=== PATIENT | male | born 1955 | race Caucasian/White ===

== ENCOUNTER 2024-04-04 14:56 | Observation (INO) | payer OTHER, BC ==
[2024-04-04] MEDS ORDERED: DIPHTH,PERTUSS(ACELL),TET 0.5 ML DISP.SYRIN IM ONE (15:36)
[2024-04-04] MEDS: DIPHTH,PERTUSS(ACELL),TET 0.5 ML DISP.SYRIN IM ONE (15:51)
[2024-04-04 15:58] LABS: BASO % 0.8 % (0-2.0); EOS % 1.1 % (0-4.5); HEMATOCRIT 44.5 % (35.4-49); HEMOGLOBIN 14.7 GM/dL (11.7-16.9); LYMPH % 28.8 % (8-40); MCH 29.9 pg (25.7-33.7); MEAN CELL VOLUME 90.6 fl (80-96); MEAN PLT VOLUME 8.1 fl (7.5-11.1); MONO % 7.5 % (3.8-10.2); NEUT % 61.8 % (42.8-82.8); PLATELET COUNT 223 10^3/uL (134-434); RBC 4.91 M/mm3 (4.00-5.60); RDW 13.4 % (11.9-15.9); WHITE BLOOD COUNT 5.3 K/mm3 (4.0-10.0)
[2024-04-04 16:05] LABS: INR 0.98 (0.83-1.09); PROTHROMBIN TIME (PATIENT) 11.1 SEC (9.7-13.0)
[2024-04-04] MEDS ORDERED: ACETAMINOPHEN 500 MG TABLET (FP) ONE (16:06)
[2024-04-04] MEDS: ACETAMINOPHEN 500 MG TABLET (FP) PO ONE (16:08)
[2024-04-04 16:34] LABS: ALBUMIN 3.8 g/dl (3.4-5.0); BLOOD UREA NITROGEN 23.3 mg/dL (7-18); CALCIUM 9.2 mg/dL (8.5-10.1)
[2024-04-04 16:37] LABS: CREATININE 0.9 mg/dL (0.55-1.3)
[2024-04-04 16:39] LABS: BILIRUBIN,TOTAL 0.6 mg/dL (0.2-1); TOT PROT 6.8 g/dl (6.4-8.2)
[2024-04-04 20:39] VITALS: RESP 18; BMI 22.5
[2024-04-05] MEDS: ENOXAPARIN NA (PORCINE) 40 MG/0.4 ML DISP.SYRIN SQ SCH (10:33)
[2024-04-05] MEDS: ACETAMINOPHEN 325 MG TABLET (FP) PO PRN (10:34)
[2024-04-06 09:12] VITALS: TEMP 98.6
[2024-04-06 09:59] LABS: BASO % 0.3 % (0-2.0); EOS % 1.2 % (0-4.5); HEMATOCRIT 41.2 % (35.4-49); LYMPH % 18.7 % (8-40); MCH 30.3 pg (25.7-33.7); MCHC 33.9 g/dl (32.0-35.9); MEAN CELL VOLUME 89.4 fl (80-96); MEAN PLT VOLUME 8.8 fl (7.5-11.1); MONO % 7.2 % (3.8-10.2); NEUT % 72.6 % (42.8-82.8); PLATELET COUNT 217 10^3/uL (134-434); RBC 4.61 M/mm3 (4.00-5.60); WHITE BLOOD COUNT 6.8 K/mm3 (4.0-10.0)
[2024-04-06 10:10] LABS: POTASSIUM 3.8 mmol/L (3.5-5.1)
[2024-04-06 10:14] LABS: BLOOD UREA NITROGEN 16.6 mg/dL (7-18)
[2024-04-06 10:15] LABS: ALBUMIN 3.5 g/dl (3.4-5.0); CALCIUM 8.7 mg/dL (8.5-10.1)
[2024-04-06 10:16] LABS: MAGNESIUM 2.4 mg/dL (1.8-2.4)
[2024-04-06 10:17] LABS: CREATININE 0.8 mg/dL (0.55-1.3)
[2024-04-06 10:19] LABS: BILIRUBIN,TOTAL 0.7 mg/dL (0.2-1); TOT PROT 6.3 g/dl (6.4-8.2)
[2024-04-06 14:51] VITALS: BP 119/62; PULSE 49
== END 2024-04-06 14:56 | disposition home or self-care (01) ==
LOC: JERFT 14:56 → JER 14:56 → JERBED 19:22 → J5S 20:21
PROVIDERS: ADMIT Student in an Organized Health Care Education/Training Program; ATTEND Internal Medicine
PROC: 0HQ0XZZ Repair Scalp Skin, External Approach (ICD-10-PCS; principal; 2024-04-04)
PROC: 3E0234Z Introduction of Serum, Toxoid and Vaccine into Muscle, Percutaneous Approach (ICD-10-PCS; 2024-04-04)
DX: S01.91XA Laceration without foreign body of unspecified part of head, initial encounter (principal); W01.10XA Fall on same level from slipping, tripping and stumbling with subsequent striking against unspecified object, initial encounter; R00.1 Bradycardia, unspecified; Y93.89 Activity, other specified; Y92.098 Other place in other non-institutional residence as the place of occurrence of the external cause; J93.9 Pneumothorax, unspecified; R07.89 Other chest pain; I10 Essential (primary) hypertension; Z23 Encounter for immunization
CPT/HCPCS: 36415; 70450-TC; 71045-TC-FY; 71046-TC-FY; 71260-TC; 72125-TC; 73070-TC-LT-FY; 80053; 83735; 84484; 85025; 85610; 90715; 93005; 93010; 94010; 97116-GP; 97161-GP; 99285-25; G0378